=== PATIENT | male | born 1960 | race Caucasian/White ===

== ENCOUNTER 2020-04-14 12:30 | Emergency (ER) | payer BC ==
[2020-04-14 13:14] VITALS: BP 134/86; PULSE 79; TEMP 98; BMI 21.2
[2020-04-14 13:57] LABS: BASO % 0.1 % (0-2.0); EOS % 0.1 % (0-4.5); HEMATOCRIT 47.3 % (35.4-49); HEMOGLOBIN 16.2 GM/dL (11.7-16.9); LYMPH % 8.4 % (8-40); MCH 31.6 pg (25.7-33.7); MCHC 34.3 g/dl (32.0-35.9); MEAN CELL VOLUME 92.1 fl (80-96); MEAN PLT VOLUME 7.4 fl (7.5-11.1); MONO % 3.7 % (3.8-10.2); NEUT % 87.7 % (42.8-82.8); PLATELET COUNT 229 K/MM3 (134-434); RBC 5.14 M/mm3 (4.00-5.60); RDW 13.2 % (11.9-15.9); WHITE BLOOD COUNT 10.9 K/mm3 (4.0-10.0)
[2020-04-14 14:08] LABS: CHLORIDE 104 mmol/L (98-107); POTASSIUM 3.9 mmol/L (3.5-5.1)
[2020-04-14 14:10] LABS: CALCIUM 8.9 mg/dL (8.5-10.1)
[2020-04-14 14:11] LABS: ALBUMIN 3.7 g/dl (3.4-5.0); CO2 27 mmol/L (21-32); GLUCOSE,RANDOM 143 mg/dL (74-106)
[2020-04-14 14:14] LABS: CREATININE 0.9 mg/dL (0.55-1.3); SGOT/AST 35 U/L (15-37); SGPT/ALT 64 U/L (13-61)
[2020-04-14 14:16] LABS: BILIRUBIN,TOTAL 1.2 mg/dL (0.2-1); TOT PROT 7.9 g/dl (6.4-8.2)
[2020-04-14 14:17] LABS: ALK PHOS 105 U/L (45-117)
[2020-04-14 14:20] LABS: ANION GAP 6 MMOL/L (8-16); BLOOD UREA NITROGEN 21.2 mg/dL (7-18); LDH 185 U/L (87-246); SODIUM 137 mmol/L (136-145)
== END 2020-04-14 15:45 | disposition home or self-care (01) ==
LOC: JER 12:30
DX: R06.02 Shortness of breath (principal)
CPT/HCPCS: 36415; 80053; 82728; 83615; 84484; 85025; 85379; 86140; 99284-25; C9803; U0003